=== PATIENT | female | born 1995 | race Two or more races ===

== ENCOUNTER 2019-06-26 14:14 | Emergency (ER) | payer SELFPAY ==
[~2019-06-26] VITALS: Ht 157.5 cm; Wt 122.9 kg
--- NOTE | 2019-06-26 14:30 | NUR ---
patient came in to the ER c/o breast pain, on room air, breathing evenly and unlabored. kept comfortable, will continue to monitor accordingly.
--- NOTE | 2019-06-26 15:09 | NUR ---
CHAPERONED ALOK KAUFFMAN AT BEDSIDE FOR ASSESSMENT OF PATIENT
[2019-06-26 15:32] VITALS: BP 150/91
--- NOTE | 2019-06-26 15:32 | NUR ---
Patient discharged to home in stable condition. Written and verbal after care instructions given. Patient verbalizes understanding of instruction.
== END 2019-06-26 15:32 | disposition home or self-care (01) ==
LOC: ER 14:14
DX: N61.1 Abscess of the breast and nipple (principal)

== ENCOUNTER 2021-03-06 10:12 | Emergency (ER) | payer SELFPAY ==
[~2021-03-06] VITALS: Ht 157.5 cm; Wt 113.4 kg
--- NOTE | 2021-03-06 10:12 | NUR ---
PT BIB SELF C/O "IM HAVING ANXIETY RIGHT NOW AND I FEEL SHORT OF BREATH" PT IS AAOX4, NOT IN RESPIRATORY DISTRESS, V/S STABLE, KEPT RESTED AND COMFORTABLE. WILL CONTINUE TO MONITOR.
--- NOTE | 2021-03-06 10:20 | NUR ---
URINE SPECIMEN COLLECTED AND SENT TO LAB.
--- NOTE | 2021-03-06 10:32 | NUR ---
SEEN AND EXAMINED BY .
[2021-03-06 10:54] LABS: BASOPHILS % (AUTO) 0.3 % (0.0-2.0); EOSINOPHILS % (AUTO) 0.4 % (0.0-6.0); HEMATOCRIT 38 % (33-45); HEMOGLOBIN 12.9 g/dL (11.5-14.8); LYMPHOCYTES # (AUTO) 1.9 /CMM (0.8-4.8); LYMPHOCYTES % (AUTO) 19.2 % (20.0-44.0); MEAN CORPUSCULAR HGB CONC 34 g/dl (31.0-36.0); MEAN CORPUSCULAR VOLUME 85 fL (82-100); MONOCYTES # (AUTO) 0.6 /CMM (0.1-1.30); NEUTROPHILS # (AUTO) 7.4 /CMM (1.8-8.9); NEUTROPHILS % (AUTO) 74.1 % (43.0-81.0); PLATELET COUNT (AUTO) 488 /CMM (150-450); RED BLOOD CELL COUNT(AUTO) 4.45 MIL/uL (4.0-5.2)
[2021-03-06] MEDS ORDERED: LORAZEPAM 1 MG TABLET PO ONE (11:00)
[2021-03-06 11:04] LABS: CALCIUM, SERUM 9.6 mg/dL (8.5-10.1); CARBON DIOXIDE 24 mmol/L (21-32); CHLORIDE 104 mmol/L (98-107); CREATININE 0.8 mg/dL (0.6-1.3); GLUCOSE 96 mg/dL (74-106); POTASSIUM 3.5 mmol/L (3.5-5.1); SODIUM SERUM 140 mmol/L (136-145); UREA NITROGEN, BLOOD 7 mg/dL (7-18)
[2021-03-06] MEDS ORDERED: LORAZEPAM 1 MG TABLET ONE (11:05)
[2021-03-06] MEDS ORDERED: LORA-259 PO (12:02)
[2021-03-06 12:11] VITALS: BP 137/91
--- NOTE | 2021-03-06 12:11 | NUR ---
IV removed. Catheter intact and site benign. Pressure and 4x4 applied to site. No bleeding noted. Patient discharged to home in stable condition. Written and verbal after care instructions given. Patient verbalizes understanding of instruction.
== END 2021-03-06 12:12 | disposition home or self-care (01) ==
LOC: ER 10:15
DX: R06.00 Dyspnea, unspecified (principal); F41.9 Anxiety disorder, unspecified
CPT/HCPCS: 36415; 71045-TC; 80048-TC; 84484-TC; 84703-TC; 85025-TC; 85378-TC

== ENCOUNTER 2024-07-17 17:24 | Emergency (ER) | payer MEDICAID ==
[~2024-07-17] VITALS: Ht 154.9 cm; Wt 104.3 kg
[~2024-07-17 17:24] MED LIST: LORA-259 PO
[2024-07-17 17:30] VITALS: BP 142/89; TEMP 98.3
[2024-07-17] MEDS: ONDANSETRON HCL 4 MG/5 ML SOLUTION PO ONE (18:02)
[2024-07-17] MEDS ORDERED: ONDANSETRON 4 MG TAB.RAPDIS ONE (18:03)
[2024-07-17] MEDS ORDERED: IBUPROFEN 400 MG TABLET ONE (18:03)
[2024-07-17] MEDS ORDERED: IBUPROFEN 600 MG TABLET ONE (18:05)
[2024-07-17] MEDS: ONDANSETRON 4 MG TAB.RAPDIS SL ONE (18:06)
[2024-07-17] MEDS: IBUPROFEN 400 MG TABLET PO ONE (18:06)
[2024-07-17] MEDS: IBUPROFEN 600 MG TABLET PO ONE (18:07)
[2024-07-17] MEDS ORDERED: PENI500T PO (18:16)
[2024-07-17 18:24] VITALS: O2SAT 99
== END 2024-07-17 18:24 | disposition home or self-care (01) ==
LOC: ER 17:24
DX: K02.9 Dental caries, unspecified (principal); R11.0 Nausea
CPT/HCPCS: 99283; Q0162

== ENCOUNTER 2024-09-14 13:42 | Emergency (ER) | payer SELFPAY ==
[~2024-09-14] VITALS: Ht 157.5 cm; Wt 113.4 kg
[~2024-09-14 13:42] MED LIST changes: +PENI500T PO
[2024-09-14] MEDS ORDERED: IBUPROFEN 400 MG TABLET ONE (16:37)
[2024-09-14] MEDS: IBUPROFEN 400 MG TABLET PO ONE (16:38)
[2024-09-14] MEDS ORDERED: OSEL75CA PO (17:00)
[2024-09-14 17:17] VITALS: BP 124/71; TEMP 100.8; O2SAT 99
== END 2024-09-14 17:18 | disposition home or self-care (01) ==
LOC: ER 13:42
DX: J11.1 Influenza due to unidentified influenza virus with other respiratory manifestations (principal); Z20.822 Contact with and (suspected) exposure to COVID-19; Z28.310 Unvaccinated for COVID-19
CPT/HCPCS: 71045-TC